=== PATIENT | male | born 1970 | race Caucasian/White ===

== ENCOUNTER 2016-11-24 21:14 | Emergency (ER) | payer OTHER ==
--- NOTE | 2016-11-24 23:01 | ED NURSING NOTES ---
Clinical Report - Nurses [facility] [address] [place] [address] 11/24/2016 21:17 Patient: RON PORTER TRIAGE Triage time 21:30. Acuity: LEVEL 3. Chief Complaint: FAINTING. Alert. No acute distress. --21:35 Gume Olmos R.N. 21:29 11/24/16. BP: 186/103. HR: 86. RR: 20. O2 saturation: 95%. Temp: 98.4 F. Pain level now 0/10. --21:35 Gume Olmos R.N. Weight: 86.1 kg stated. Height/Length: 69 inches Per Patient. BMI: 28.1. --21:33 Gume Olmos R.N. Medications None. --21:32 Gume Olmos R.N. Allergies None. --21:32 Gume Olmos R.N. History Arrived by private vehicle. Historian: patient and family. This started just prior to arrival. ( Patient had an episode of 'not feeling well' while eating at local restaurant. Stood up and lost consciousness). 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 PAST MEDICAL HX: Negative. ( States does not use any recreational drugs, but use some cocaine last night.). SOCIAL HX: Never smoker. Alcohol use. No drug use. FALL RISK ASSESSMENT: Fall risk assessment completed. No fall risk identified. NUTRITIONAL RISK ASSESSMENT: The nutritional risk assessment revealed no deficiencies. FUNCTIONAL ASSESSMENT: Functional assessment: no impairments noted. LEARNING NEEDS ASSESSMENT: The learning needs assessment revealed no barriers. SKIN INTEGRITY ASSESSMENT: Skin integrity risk assessment completed. No skin integrity risk identified. --21:35 Gume Olmos R.N. Interventions ID band on patient. --21:35 Gume Olmos R.N. PHYSICAL ASSESSMENT GENERAL / NEURO / PSYCH: Alert. Oriented X 4. Appears in no acute distress. HEENT: Pupils equal, round and reactive to light. RESPIRATORY: Respirations not labored. CVS: Normal sinus rhythm noted. GI / : Abdomen soft. SKIN: Skin is warm and dry. --21:35 Gume Olmos R.N. NURSING PROGRESS NOTES Call light placed in reach. Bed placed in lowest position. --21:39 Gume Olmos R.N. 21:42 11/24/2016 Site #1 started via IV in the right antecubital space with an 20g angiocath, with aseptic technique; one attempt. Blood drawn: rainbow set. Labeled in the presence of the patient and sent to the lab. Saline lock flushed with 10 mL saline. --21:42 Chidi Mendoza R.N. EKG time: (2137). EKG was ordered, performed by a tech and shown to the ED physician. --21:44 Jonathon Deras, JENA Compliance Tester 22:01 11/24/2016 Started bag #1 1000 mL IV Fluids IV NS (Saline); at 1000 mL/hr over 1 hour(s) via site #1 --22:01 Gume Olmos R.N. 23:07 11/25/2016 IV Fluids IV NS Discontinued: bag #1. Total amount infused: 1000 mL. IV patency established. IV site checked: no pain, redness, or swelling. IV flushed thoroughly. --01:08 Gume Olmos R.N. DISPOSITION / DISCHARGE Condition at departure: improved. ( Patient given Magnesium Oxide, 400 mg po. States feels better now. IV dced. Patient verbalized understanding of discharge instructions. Ambulated out of department). No learning barriers present. Discharge instructions provided and reviewed with the patient and spouse. Patient and spouse verbalized understanding. Written instructions provided in Polish. The patient was discharged by the physician. He was discharged home and accompanied by spouse. He left the Emergency Department ambulatory and via private vehicle. --23:19 Gume Olmos R.N. 23:14 11/24/16. BP: 147/89. HR: 80. RR: 18. O2 saturation: 96%. Temp: 98.9 F. Pain level now 0/10. --23:19 Gume Olmos R.N. Locked/Released at 11/25/2016 1:09 by Gume Olmos R.N.
--- NOTE | 2016-11-24 23:01 | ED ORDER SUMMARY ---
..... Patient: RON PORTER OrderSheet [facility] VisitID: [id number] [place] [address] 45y, M Registration Date/Time: 11/24/2016 ORDER SHEET Weight: 86.1 kg (stated) Allergies: None GENERAL ORDERS: EKG - ER Stat (21:44 11/24/2016 [facility] Deputy [place] Marshal verbal order read back to Chelsie Hull) (21:44 [facility] Deputy [place] Marshal) Cardiac Panel Stat (21:54 11/24/2016 Chelsie Hull) (Ack 21:55 Elie) (21:57 GMarshall R.N.) MEDICATION ORDERS: - (Magnesium Oxide 400 mg PO x 1 now) (22:47 11/24/2016 Chelsie Hull) (Ack 22:48 GMarshall R.N.) IV FLUIDS: IV NS : initial bolus none -, then 1000 mL/hr for X1 (NOW) (21:54 11/24/2016 Chelsie Hull) (22:01 GMarshall R.N.) ORDER SHEET NOTES: [Electronically signed by Aureliano Moore Dr. (01:11/25/2016)] [Electronically signed by Gume Olmos R.N. (01:09 11/25/2016)] [Electronically locked/signed by Gume Olmos R.N. (01:11/25/2016)]
--- NOTE | 2016-11-24 23:01 | ED ORDER SUMMARY ---
..... Patient: RON PORTER OrderSheet [facility] VisitID: [id number] [place] [address] 45y, M Registration Date/Time: 11/24/2016 ORDER SHEET Weight: 86.1 kg (stated) Allergies: None GENERAL ORDERS: EKG - ER Stat (21:44 11/24/2016 [facility] Cloud Physicist verbal order read back to Chelsie Hull) (21:44 [facility] Cloud Physicist) Cardiac Panel Stat (21:54 11/24/2016 Chelsie Hull) (Ack 21:55 Elie) (21:57 GMarshall R.N.) MEDICATION ORDERS: - (Magnesium Oxide 400 mg PO x 1 now) (22:47 11/24/2016 Chelsie Hull) (Ack 22:48 GMarshall R.N.) IV FLUIDS: IV NS : initial bolus none -, then 1000 mL/hr for X1 (NOW) (21:54 11/24/2016 Chelsie Hull) (22:01 GMarshall R.N.) ORDER SHEET NOTES: [Electronically signed by Aureliano Moore Dr. (01:11/25/2016)] [Electronically signed by Gume Olmos R.N. (01:09 11/25/2016)] [Electronically locked/signed by Gume Olmos R.N. (01:11/25/2016)]
--- NOTE | 2016-11-24 23:01 | ED CLINICAL REPORT ---
Clinical Report - Physicians/Mid Levels [facility] [address] [place] [address] 11/24/2016 21:17 [id number] Time Seen: 21:27; initial patient contact. Arrived- By private vehicle. Historian- patient. HISTORY OF PRESENT ILLNESS Chief Complaint: SINGLE SYNCOPAL EPISODE. The patient recovered at the scene. This occurred just prior to arrival. Event was witnessed. The patient lost consciousness. No seizure activity, incontinence or apnea noted. At time of event, he had just stood up. The patient had preceding symptoms of light-headedness, nausea, dim vision and warmth. Currently he has no symptoms. No injuries noted. (Admits to using Cocaine last night and was up all night.). Similar symptoms previously: None. Recent medical care: Not recently seen/assessed. REVIEW OF SYSTEMS No headache, dizziness, weakness, chest pain or palpitations. No abdominal pain, vomiting, diarrhea or numbness. All systems otherwise negative, except as recorded above. PAST HISTORY Negative. Problems: no known problems. Surgeries: No history of previous surgery. Additional Surgeries: no known surgeries. Medications: None. Allergies: None. SOCIAL HISTORY Never smoker. History of drug use Only once last night: cocaine. No alcohol use. ADDITIONAL NOTES The nursing notes have been reviewed. PHYSICAL EXAM Vital Signs: 11/24/2016 21:29 BP: 186/103. HR: 86. RR: 20. O2 saturation: 95%. Temp: 98.4 F. Have been reviewed. Hypertensive. Heart rate normal. Respiratory rate normal. Temperature normal. Oxygen saturation normal. Appearance: Alert. No acute distress. Eyes: Pupils equal, round and reactive to light. No nystagmus. Extraocular movements normal. ENT: Dry mucous membranes present. Neck: Normal inspection. CVS: Normal heart rate and rhythm. Heart sounds normal. Respiratory: No respiratory distress. Breath sounds normal. Abdomen: Soft and nontender. No organomegaly. Skin: Skin warm and dry. Normal skin color. Extremities: No calf tenderness. No lower extremity edema. Neuro: Alert. Oriented X 3. Mood/affect normal. Speech normal. Cranial nerves normal (as tested). No cerebellar findings. No motor deficit. No sensory deficit. LABS, X-RAYS, AND EKG EKG: EKG time: (2137). No acute process. No acute ischemia. Normal EKG. Normal sinus rhythm. Rate: 73. Normal P waves. Normal WOLF. Normal QRS complex. Normal axis. Normal ST and T waves, QT and QTc. Prior EKG unavailable. The study has been interpreted contemporaneously by me. The study has been independently viewed by me. The EKG appears to be a good tracing. Interpretation time: 2138. Laboratory Tests: CBC w Diff: (KIKE: 11/24/2016 21:34) ( MsgRcvd 11/24/2016 22:00) Final results Test Result Flag Units (Reference) WHITE BLOOD COUNT 8.7 K/uL (4.5-11.5) RED BLOOD COUNT 5.75 M/uL (4.50-5.90) HEMOGLOBIN 15.7 gm/dL (13.5-17.5) HEMATOCRIT 47.5 % (41.0-53.0) MEAN CELL VOLUME 83 fL (80-100) MEAN CORPUSCULAR HGB 27 pg (26-34) MEAN CORPUSCULAR HGB CONC 33 g/dL (31-37) RED CELL DISTRIBUTION WIDTH 13.6 % (11.6-14.8) PLATELET COUNT 297 K/uL (150-400) NEUTROPHIL % 55.9 % (50-75) LYMPH % 37.2 % (25-40) MONO % 5.7 % (3-14) EOSINOPHIL % 0.7 % (0-4) BASOPHIL % 0.5 % (0-2) CHEM 13 PANEL: (KIKE: 11/24/2016 21:34) ( MsgRcvd 11/24/2016 22:15) Final results Test Result Flag Units (Reference) GLUCOSE 136 H mg/dL (70-110) BUN 14 mg/dL (7-18) CREATININE 1.0 mg/dL (0.6-1.3) Estimated GFR >60 mL/min Estimated GFR- >60 mL/min Note: Persistent reduction over 3 months in eGFR<60 mL/min/1.73 m2 defines CKD. Patients with eGFR values>=60 mL/min/1.73 m2 may also have CKD if evidence ofpersistent proteinuria. Additional information may be foundat www.kidney.org. SODIUM 140 mmol/L (136-145) POTASSIUM 3.5 mmol/L (3.5-5.1) CHLORIDE 100 mmol/L (98-107) CARBON DIOXIDE 28 mmol/L (21-32) CALCIUM 9.9 mg/dL (8.5-10.1) TOTAL PROTEIN 8.1 g/dL (6.4-8.2) ALBUMIN 4.8 g/dL (3.3-5.0) BILIRUBIN, TOTAL 0.4 mg/dL (0.0-1.0) ALKALINE PHOSPHATASE 71 U/L (46-116) AST (SGOT) 20 U/L (15-37) ALT (SGPT) 46 U/L (12-78) MAGNESIUM 1.5 L mg/dL (1.8-2.4) CPK 132 U/L (24-260) TROPONIN I <0.05 L ng/mL (0.00-1.5) TROPONIN REFERENCE RANGE:<0.1 NEGATIVE0.1-1.5 INDETERMINANT>1.5 POSITIVE . PROGRESS AND PROCEDURES Course of Care: Evaluation after IV fluids. The patient's symptoms are now gone. Physical exam findings are improved. Disposition: Discharged home in good and improved condition. Condition: good. CLINICAL IMPRESSION Vasovagal syncope .12 lead EKG performed. Mild hypomagnesemia. INSTRUCTIONS No strenuous activity today, tomorrow. Drink plenty of fluids. Your Current Medications: CONTINUE TAKING THE FOLLOWING MEDICATIONS: None*. Follow-up: Screening today revealed the patient's blood pressure to be in the hypertensive range. The patient should follow up with a primary care provider for blood pressure management. Follow-up with: [facility], [facility], , [address] [place] [address], [address], [place] [address] Follow up in about three days. Call for an appointment. (Electronically signed by Aureliano Moore Dr. 11/25/2016 1:01)
--- NOTE | 2016-11-24 23:01 | ED NURSING NOTES ---
Clinical Report - Nurses [facility] [address] [place] [address] 11/24/2016 21:17 Patient: RON PORTER TRIAGE Triage time 21:30. Acuity: LEVEL 3. Chief Complaint: FAINTING. Alert. No acute distress. --21:35 Gume Olmos R.N. 21:29 11/24/16. BP: 186/103. HR: 86. RR: 20. O2 saturation: 95%. Temp: 98.4 F. Pain level now 0/10. --21:35 Gume Olmos R.N. Weight: 86.1 kg stated. Height/Length: 69 inches Per Patient. BMI: 28.1. --21:33 Gume Olmos R.N. Medications None. --21:32 Gume Olmos R.N. Allergies None. --21:32 Gume Olmos R.N. History Arrived by private vehicle. Historian: patient and family. This started just prior to arrival. ( Patient had an episode of 'not feeling well' while eating at local restaurant. Stood up and lost consciousness). 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 PAST MEDICAL HX: Negative. ( States does not use any recreational drugs, but use some cocaine last night.). SOCIAL HX: Never smoker. Alcohol use. No drug use. FALL RISK ASSESSMENT: Fall risk assessment completed. No fall risk identified. NUTRITIONAL RISK ASSESSMENT: The nutritional risk assessment revealed no deficiencies. FUNCTIONAL ASSESSMENT: Functional assessment: no impairments noted. LEARNING NEEDS ASSESSMENT: The learning needs assessment revealed no barriers. SKIN INTEGRITY ASSESSMENT: Skin integrity risk assessment completed. No skin integrity risk identified. --21:35 Gume Olmos R.N. Interventions ID band on patient. --21:35 Gume Olmos R.N. PHYSICAL ASSESSMENT GENERAL / NEURO / PSYCH: Alert. Oriented X 4. Appears in no acute distress. HEENT: Pupils equal, round and reactive to light. RESPIRATORY: Respirations not labored. CVS: Normal sinus rhythm noted. GI / : Abdomen soft. SKIN: Skin is warm and dry. --21:35 Gume Olmos R.N. NURSING PROGRESS NOTES Call light placed in reach. Bed placed in lowest position. --21:39 Gume Olmos R.N. 21:42 11/24/2016 Site #1 started via IV in the right antecubital space with an 20g angiocath, with aseptic technique; one attempt. Blood drawn: rainbow set. Labeled in the presence of the patient and sent to the lab. Saline lock flushed with 10 mL saline. --21:42 Chidi Mendoza R.N. EKG time: (2137). EKG was ordered, performed by a tech and shown to the ED physician. --21:44 Jonathon Deras, JENA Graphite Grinder 22:01 11/24/2016 Started bag #1 1000 mL IV Fluids IV NS (Saline); at 1000 mL/hr over 1 hour(s) via site #1 --22:01 Gume Olmos R.N. 23:07 11/25/2016 IV Fluids IV NS Discontinued: bag #1. Total amount infused: 1000 mL. IV patency established. IV site checked: no pain, redness, or swelling. IV flushed thoroughly. --01:08 Gume Olmos R.N. DISPOSITION / DISCHARGE Condition at departure: improved. ( Patient given Magnesium Oxide, 400 mg po. States feels better now. IV dced. Patient verbalized understanding of discharge instructions. Ambulated out of department). No learning barriers present. Discharge instructions provided and reviewed with the patient and spouse. Patient and spouse verbalized understanding. Written instructions provided in Swedish. The patient was discharged by the physician. He was discharged home and accompanied by spouse. He left the Emergency Department ambulatory and via private vehicle. --23:19 Gume Olmos R.N. 23:14 11/24/16. BP: 147/89. HR: 80. RR: 18. O2 saturation: 96%. Temp: 98.9 F. Pain level now 0/10. --23:19 Gume Olmos R.N. Locked/Released at 11/25/2016 1:09 by Gume Olmos R.N.
--- NOTE | 2016-11-24 23:01 | ED CLINICAL REPORT ---
Clinical Report - Physicians/Mid Levels [facility] [address] [place] [address] 11/24/2016 21:17 [id number] Time Seen: 21:27; initial patient contact. Arrived- By private vehicle. Historian- patient. HISTORY OF PRESENT ILLNESS Chief Complaint: SINGLE SYNCOPAL EPISODE. The patient recovered at the scene. This occurred just prior to arrival. Event was witnessed. The patient lost consciousness. No seizure activity, incontinence or apnea noted. At time of event, he had just stood up. The patient had preceding symptoms of light-headedness, nausea, dim vision and warmth. Currently he has no symptoms. No injuries noted. (Admits to using Cocaine last night and was up all night.). Similar symptoms previously: None. Recent medical care: Not recently seen/assessed. REVIEW OF SYSTEMS No headache, dizziness, weakness, chest pain or palpitations. No abdominal pain, vomiting, diarrhea or numbness. All systems otherwise negative, except as recorded above. PAST HISTORY Negative. Problems: no known problems. Surgeries: No history of previous surgery. Additional Surgeries: no known surgeries. Medications: None. Allergies: None. SOCIAL HISTORY Never smoker. History of drug use Only once last night: cocaine. No alcohol use. ADDITIONAL NOTES The nursing notes have been reviewed. PHYSICAL EXAM Vital Signs: 11/24/2016 21:29 BP: 186/103. HR: 86. RR: 20. O2 saturation: 95%. Temp: 98.4 F. Have been reviewed. Hypertensive. Heart rate normal. Respiratory rate normal. Temperature normal. Oxygen saturation normal. Appearance: Alert. No acute distress. Eyes: Pupils equal, round and reactive to light. No nystagmus. Extraocular movements normal. ENT: Dry mucous membranes present. Neck: Normal inspection. CVS: Normal heart rate and rhythm. Heart sounds normal. Respiratory: No respiratory distress. Breath sounds normal. Abdomen: Soft and nontender. No organomegaly. Skin: Skin warm and dry. Normal skin color. Extremities: No calf tenderness. No lower extremity edema. Neuro: Alert. Oriented X 3. Mood/affect normal. Speech normal. Cranial nerves normal (as tested). No cerebellar findings. No motor deficit. No sensory deficit. LABS, X-RAYS, AND EKG EKG: EKG time: (2137). No acute process. No acute ischemia. Normal EKG. Normal sinus rhythm. Rate: 73. Normal P waves. Normal WOLF. Normal QRS complex. Normal axis. Normal ST and T waves, QT and QTc. Prior EKG unavailable. The study has been interpreted contemporaneously by me. The study has been independently viewed by me. The EKG appears to be a good tracing. Interpretation time: 2138. Laboratory Tests: CBC w Diff: (KIKE: 11/24/2016 21:34) ( MsgRcvd 11/24/2016 22:00) Final results Test Result Flag Units (Reference) WHITE BLOOD COUNT 8.7 K/uL (4.5-11.5) RED BLOOD COUNT 5.75 M/uL (4.50-5.90) HEMOGLOBIN 15.7 gm/dL (13.5-17.5) HEMATOCRIT 47.5 % (41.0-53.0) MEAN CELL VOLUME 83 fL (80-100) MEAN CORPUSCULAR HGB 27 pg (26-34) MEAN CORPUSCULAR HGB CONC 33 g/dL (31-37) RED CELL DISTRIBUTION WIDTH 13.6 % (11.6-14.8) PLATELET COUNT 297 K/uL (150-400) NEUTROPHIL % 55.9 % (50-75) LYMPH % 37.2 % (25-40) MONO % 5.7 % (3-14) EOSINOPHIL % 0.7 % (0-4) BASOPHIL % 0.5 % (0-2) CHEM 13 PANEL: (KIKE: 11/24/2016 21:34) ( MsgRcvd 11/24/2016 22:15) Final results Test Result Flag Units (Reference) GLUCOSE 136 H mg/dL (70-110) BUN 14 mg/dL (7-18) CREATININE 1.0 mg/dL (0.6-1.3) Estimated GFR >60 mL/min Estimated GFR- >60 mL/min Note: Persistent reduction over 3 months in eGFR<60 mL/min/1.73 m2 defines CKD. Patients with eGFR values>=60 mL/min/1.73 m2 may also have CKD if evidence ofpersistent proteinuria. Additional information may be foundat www.kidney.org. SODIUM 140 mmol/L (136-145) POTASSIUM 3.5 mmol/L (3.5-5.1) CHLORIDE 100 mmol/L (98-107) CARBON DIOXIDE 28 mmol/L (21-32) CALCIUM 9.9 mg/dL (8.5-10.1) TOTAL PROTEIN 8.1 g/dL (6.4-8.2) ALBUMIN 4.8 g/dL (3.3-5.0) BILIRUBIN, TOTAL 0.4 mg/dL (0.0-1.0) ALKALINE PHOSPHATASE 71 U/L (46-116) AST (SGOT) 20 U/L (15-37) ALT (SGPT) 46 U/L (12-78) MAGNESIUM 1.5 L mg/dL (1.8-2.4) CPK 132 U/L (24-260) TROPONIN I <0.05 L ng/mL (0.00-1.5) TROPONIN REFERENCE RANGE:<0.1 NEGATIVE0.1-1.5 INDETERMINANT>1.5 POSITIVE . PROGRESS AND PROCEDURES Course of Care: Evaluation after IV fluids. The patient's symptoms are now gone. Physical exam findings are improved. Disposition: Discharged home in good and improved condition. Condition: good. CLINICAL IMPRESSION Vasovagal syncope .12 lead EKG performed. Mild hypomagnesemia. INSTRUCTIONS No strenuous activity today, tomorrow. Drink plenty of fluids. Your Current Medications: CONTINUE TAKING THE FOLLOWING MEDICATIONS: None*. Follow-up: Screening today revealed the patient's blood pressure to be in the hypertensive range. The patient should follow up with a primary care provider for blood pressure management. Follow-up with: [facility], [facility], , [address] [place] [address], [address], [place] [address] Follow up in about three days. Call for an appointment. (Electronically signed by Aureliano Moore Dr. 11/25/2016 1:01)
--- NOTE | 2016-11-25 01:09 | ED MED RECONCILIATION SUMMARY ---
Patient: RON PORTER Medication Reconciliation Report [facility] VisitID: [id number] [address] [place] [address] 45y, M Registration Date/Time: 11/24/2016 Weight: 86.1 kg Height/Length: 69 in. BMI: 28.1 ALLERGIES: None The patient's Home Medications are listed below: NONE. The source(s) of the original Home Medication information: Not obtained. The following Medications were given to the patient in the Emergency Department: IV NS IV Fluids bolus 0, then 1000 mL/hr, administered: 11/24/2016 10:01:00 PM The following Medications were prescribed to the patient: None.
--- NOTE | 2016-11-25 01:09 | ED MAR SUMMARY ---
..... Medication Administration Record [facility] [address] [place] [address] Patient: RON PORTER Visit ID: [id number] 45y, M Weight: 86.1 kg Height/Length: 69 in BMI: 28.1 ALLERGIES: None Start 22:01 11/24/2016 Gume Olmos R.N., Stop 23:07 11/25/2016 Gume Olmos R.N. Medication Administered: IV NS (SALINE), Dose: IV Fluids over 1 hour(s), Rate: 1000 mL/hr, Dispensed: 1000 mL bag, Site: #1 right AC. Medication Ordered: IV NS : initial bolus none -, then 1000 mL/hr for X1 (NOW).
--- NOTE | 2016-11-25 01:09 | ED MAR SUMMARY ---
..... Medication Administration Record [facility] [address] [place] [address] Patient: RON PORTER Visit ID: [id number] 45y, M Weight: 86.1 kg Height/Length: 69 in BMI: 28.1 ALLERGIES: None Start 22:01 11/24/2016 Gume Olmos R.N., Stop 23:07 11/25/2016 Gume Olmos R.N. Medication Administered: IV NS (SALINE), Dose: IV Fluids over 1 hour(s), Rate: 1000 mL/hr, Dispensed: 1000 mL bag, Site: #1 right AC. Medication Ordered: IV NS : initial bolus none -, then 1000 mL/hr for X1 (NOW).
--- NOTE | 2016-11-25 01:09 | ED DISCHARGE INSTRUCTIONS ---
Patient: RON PORTER General Instructions [facility] VisitID: [id number] [address] [place] [address] 45y, M Registration Date/Time: 11/24/2016 Vasovagal syncope .12 lead EKG performed. Mild hypomagnesemia. INSTRUCTIONS No strenuous activity today, tomorrow. Drink plenty of fluids. Your Current Medications: CONTINUE TAKING THE FOLLOWING MEDICATIONS: None*. Follow-up: Screening today revealed the patient's blood pressure to be in the hypertensive range. The patient should follow up with a primary care provider for blood pressure management. Follow-up with: [facility], , [address] [place] [address], [address], [place] [address] Follow up in about three days. Call for an appointment. No strenuous activity today, tomorrow. (Electronically signed by Aureliano Moore Dr. 11/25/2016 1:01)
--- NOTE | 2016-11-25 01:09 | ED MED RECONCILIATION SUMMARY ---
Patient: RON PORTER Medication Reconciliation Report [facility] VisitID: [id number] [address] [place] [address] 45y, M Registration Date/Time: 11/24/2016 Weight: 86.1 kg Height/Length: 69 in. BMI: 28.1 ALLERGIES: None The patient's Home Medications are listed below: NONE. The source(s) of the original Home Medication information: Not obtained. The following Medications were given to the patient in the Emergency Department: IV NS IV Fluids bolus 0, then 1000 mL/hr, administered: 11/24/2016 10:01:00 PM The following Medications were prescribed to the patient: None.
--- NOTE | 2016-11-25 01:09 | ED DISCHARGE INSTRUCTIONS ---
Patient: RON PORTER General Instructions [facility] VisitID: [id number] [address] [place] [address] 45y, M Registration Date/Time: 11/24/2016 Vasovagal syncope .12 lead EKG performed. Mild hypomagnesemia. INSTRUCTIONS No strenuous activity today, tomorrow. Drink plenty of fluids. Your Current Medications: CONTINUE TAKING THE FOLLOWING MEDICATIONS: None*. Follow-up: Screening today revealed the patient's blood pressure to be in the hypertensive range. The patient should follow up with a primary care provider for blood pressure management. Follow-up with: [facility], [facility], , [address] [place] [address], [address], [place] [address] Follow up in about three days. Call for an appointment. No strenuous activity today, tomorrow. (Electronically signed by Aureliano Moore Dr. 11/25/2016 1:01)
== END 2016-11-24 23:19 | disposition home or self-care (01) ==
LOC: ED SRH 21:14
DX: R55 Syncope and collapse (principal); E83.42 Hypomagnesemia
CPT/HCPCS: 90100; 90616; 92610; 92720; 95059